=== PATIENT | female | born 1955 | race Native Hawaiian/Other Pacific Islander ===

== ENCOUNTER 2017-11-21 13:19 | Outpatient (CLI) | payer OTHER | END 2017-11-21 23:16 | disposition home or self-care (01) | LOC: US 13:19 | DX: R42 Dizziness and giddiness (principal); I99.8 Other disorder of circulatory system ==

== ENCOUNTER 2017-11-27 13:24 | Outpatient (CLI) | payer OTHER | END 2017-11-27 20:27 | disposition home or self-care (01) | LOC: LAB 13:24 | DX: I99.8 Other disorder of circulatory system (principal); R53.81 Other malaise; R53.82 Chronic fatigue, unspecified; Z79.899 Other long term (current) drug therapy; Z51.81 Encounter for therapeutic drug level monitoring | CPT/HCPCS: 84550; 85379; 85651; 86039; 86140 ==

== ENCOUNTER 2017-11-28 13:47 | Outpatient (CLI) | payer OTHER | END 2017-11-28 19:11 | disposition home or self-care (01) | LOC: RESP 13:47 | DX: R93.1 Abnormal findings on diagnostic imaging of heart and coronary circulation (principal); R79.82 Elevated C-reactive protein (CRP) | CPT/HCPCS: 93306 ==